=== PATIENT | female | born 1990 | race African-American/Black ===

== ENCOUNTER 2016-05-01 11:27 | Emergency (ER) | payer OTHER ==
[~2016-05-01] VITALS: Wt 108.9 kg
[~2016-05-01 11:27] MED LIST: BACTRIM DS 8001 TA1 PO; CIPROFLOXACIN500 MG PO; FLAGYL500 M1 PO; MACROBID100 M1 PO; MOTRIN800 MG PO; NAPROSYN500 MG PO; PENICILLIN VK500 MG PO; PHENERGAN12.5 M1 PO; PHENERGAN25 M1 PO; PRENATABS CBF1 TAB PO; Peridex 473 ML473 ML PO; TRIMOX500 MG PO; ZOFRAN ODT4 MG SL
[2016-05-01 12:00] LABS: BASO # 0.1 10*3/uL (0.0-0.1); BASO % 0.3 % (0.0-1.0); EOS % 0.2 % (1.0-4.0); HEMATOCRIT 38.8 % (37.0-47.0); HEMOGLOBIN 12.4 g/dl (12.0-16.0); IG # 0.1 10*3/uL (0.0-0.1); LYMPH # 1.7 10*3/uL (1.3-4.4); MEAN CELL VOLUME 91.9 fl (81.0-99.0); MEAN CORPUSCULAR HGB 29.4 pg (27.0-31.0); MEAN PLATELET VOLUME 10.9 fl (9.6-12.3); MONO # 1.2 10*3/uL (0.1-1.0); MONO % 6.1 % (3.0-9.0); NEUT # 16.2 10*3/uL (2.3-7.9); PLATELET COUNT AUTOMATED 274 10*3/uL (130-400); RED BLOOD COUNT 4.22 10*6/uL (4.10-5.10); RED CELL DISTRI WIDTH 13.8 % (0-14.5); WHITE BLOOD COUNT 19.2 10*3/uL (4.8-10.8)
[2016-05-01 12:02] LABS: BILIRUBIN NEGATIVE (NEGATIVE); BLOOD 1+ (NEGATIVE); CLARITY SL CLOUDY (CLEAR); COLOR YELLOW (YELLOW); GLUCOSE NEGATIVE (NEGATIVE); KETONE 3+ (NEGATIVE); LEUKO ESTERASE 3+ (NEGATIVE); NITRITE NEGATIVE (NEGATIVE); PH 6.5 (5.0-9.0); PROTEIN TRACE (NEGATIVE); SPECIFIC GRAVITY 1.015 (1.005-1.030); UROBILINOGEN 0.2 E.U./dl (0.2-1.0)
[2016-05-01 12:10] LABS: BACTERIA 2+; EPITHELIAL CELLS 31-40; RBC 16-20 rbc/hpf (0-2); URINE REFLEX COMMENT YES (NO); WBC 31-40 wbc/hpf (0-5)
[2016-05-01 12:15] LABS: ALKALINE PHOSPHATASE 84 U/L (45-117); BILIRUBIN, TOTAL 0.8 mg/dl (0.2-1.0); BUN 6 mg/dl (7-24); CARBON DIOXIDE 25 mmol/L (21-32); CHLORIDE 104 mmol/L (98-107); EST GLOM FILT AFRICAN AMERICAN > 60 ml/min; GLUCOSE 97 mg/dL (65-99); SGOT/AST 23 IU/L (3-35); SGPT/ALT 40 U/L (12-78); SODIUM 139 mmol/L (136-145); TOTAL PROTEIN 8.4 gm/dL (6.4-8.2)
[2016-05-01] MEDS ORDERED: AUGMENTIN 875-875 MG PO (13:20)
[2016-05-01] MEDS ORDERED: PREDNISONE10 MG PO (13:20)
== END 2016-05-01 13:41 | disposition left against medical advice (07) ==
LOC: ED 11:27
PROVIDERS: Registered Nurse
DX: A41.9 Sepsis, unspecified organism (principal); N30.00 Acute cystitis without hematuria; J03.80 Acute tonsillitis due to other specified organisms; B96.89 Other specified bacterial agents as the cause of diseases classified elsewhere; J36 Peritonsillar abscess; F17.200 Nicotine dependence, unspecified, uncomplicated; Z91.018 Allergy to other foods